=== PATIENT | female | born 1955 | race Two or more races ===

== ENCOUNTER 2018-11-10 12:59 | Outpatient (CLI) | payer OTHER ==
[~2018-11-10 12:59] MED LIST: CATAFLAN PO; KETO10TA2 PO; TYLENOL325 MG PO; ZANTAC150 MG PO
== END 2018-11-10 13:00 | disposition home or self-care (01) ==
LOC: SONOGRAMA 12:59 → MAMO-SONO 13:15
DX: M25.511 Pain in right shoulder (principal); M25.512 Pain in left shoulder

== ENCOUNTER 2019-01-06 08:13 | Outpatient (CLI) | payer OTHER | END 2019-01-06 08:16 | disposition home or self-care (01) | LOC: TOM 08:13 | DX: R10.9 Unspecified abdominal pain (principal) ==

== ENCOUNTER → 2021-04-12 | Outpatient (CLI) | payer OTHER | END | disposition home or self-care (01) | LOC: MAMO-SONO 06:28 | PROVIDERS: ATTEND Internal Medicine Cardiovascular Disease | DX: N64.59 Other signs and symptoms in breast (principal); Z12.31 Encounter for screening mammogram for malignant neoplasm of breast ==

== ENCOUNTER → 2021-05-02 08:08 | Outpatient (CLI) | payer OTHER | END | disposition home or self-care (01) | LOC: RAD 08:08 | PROVIDERS: ATTEND Radiology Diagnostic Radiology | DX: M51.34 Other intervertebral disc degeneration, thoracic region (principal); M43.05 Spondylolysis, thoracolumbar region ==

== ENCOUNTER → 2021-05-27 09:33 | Outpatient (CLI) | payer OTHER | END | disposition home or self-care (01) | LOC: SONOGRAMA 09:33 | PROVIDERS: ATTEND Radiology Diagnostic Radiology | DX: R10.84 Generalized abdominal pain (principal) ==

== ENCOUNTER 2021-07-16 10:56 | Emergency (ER) | payer OTHER ==
[~2021-07-16] VITALS: Ht 165.1 cm; Wt 66.7 kg
[2021-07-16] MEDS ORDERED: ORPHENADRINE C100 MG PO (14:21)
[2021-07-16] MEDS ORDERED: DICLOFENAC POTA50 MG PO (14:21)
== END 2021-07-16 14:38 | disposition home or self-care (01) ==
LOC: ER 10:56
DX: S52.591A Other fractures of lower end of right radius, initial encounter for closed fracture (principal); S40.211A Abrasion of right shoulder, initial encounter; W17.89XA Other fall from one level to another, initial encounter; Y93.89 Activity, other specified; Y92.488 Other paved roadways as the place of occurrence of the external cause; Y99.8 Other external cause status

== ENCOUNTER 2021-07-23 06:10 | Day surgery (SDC) | payer OTHER ==
[~2021-07-23 06:10] MED LIST changes: +DICLOFENAC POTA50 MG PO; +ORPHENADRINE C100 MG PO
== END 2021-07-23 13:55 | disposition home or self-care (01) ==
LOC: CIR.AMB 06:10
PROVIDERS: ATTEND Orthopaedic Surgery
DX: S52.571A Other intraarticular fracture of lower end of right radius, initial encounter for closed fracture (principal); M24.521 Contracture, right elbow; Z20.822 Contact with and (suspected) exposure to COVID-19
CPT/HCPCS: 25609; 25118; C1776

== ENCOUNTER 2021-08-21 09:48 | Outpatient (CLI) | payer OTHER | END 2021-08-21 10:01 | disposition home or self-care (01) | LOC: RAD 09:48 | PROVIDERS: ATTEND Orthopaedic Surgery | DX: S52.571D Other intraarticular fracture of lower end of right radius, subsequent encounter for closed fracture with routine healing (principal) ==

== ENCOUNTER 2021-11-06 06:18 | Outpatient (CLI) | payer OTHER | END 2021-11-06 10:37 | disposition home or self-care (01) | LOC: RAD 06:18 | PROVIDERS: ATTEND Orthopaedic Surgery | DX: S52.571D Other intraarticular fracture of lower end of right radius, subsequent encounter for closed fracture with routine healing (principal) ==

== ENCOUNTER 2022-05-01 09:37 | Outpatient (CLI) | payer OTHER | END 2022-05-01 16:06 | disposition home or self-care (01) | LOC: MAMO-SONO 09:37 | PROVIDERS: ATTEND Internal Medicine Cardiovascular Disease | DX: Z12.31 Encounter for screening mammogram for malignant neoplasm of breast (principal); M12.9 Arthropathy, unspecified; M46.48 Discitis, unspecified, sacral and sacrococcygeal region; N63.11 Unspecified lump in the right breast, upper outer quadrant ==

== ENCOUNTER → 2023-02-13 | Outpatient (CLI) | payer OTHER | END | disposition home or self-care (01) | LOC: TOM 14:14 | PROVIDERS: ATTEND Internal Medicine Cardiovascular Disease | DX: J44.9 Chronic obstructive pulmonary disease, unspecified (principal) ==

== ENCOUNTER 2023-04-10 11:47 | Outpatient (CLI) | payer OTHER | END 2023-04-10 15:35 | disposition home or self-care (01) | LOC: SONOGRAMA 11:47 | PROVIDERS: ATTEND Internal Medicine Cardiovascular Disease | DX: E04.8 Other specified nontoxic goiter (principal) ==

== ENCOUNTER → 2023-06-05 | Outpatient (CLI) | payer OTHER | END | disposition home or self-care (01) | LOC: MAMO-SONO 06:37 | PROVIDERS: ATTEND Internal Medicine Cardiovascular Disease | DX: N60.12 Diffuse cystic mastopathy of left breast (principal); Z12.31 Encounter for screening mammogram for malignant neoplasm of breast ==

== ENCOUNTER 2023-12-02 12:55 | Outpatient (CLI) | payer OTHER | END 2023-12-02 12:56 | disposition home or self-care (01) | LOC: NUCLEAR 12:55 | PROVIDERS: ATTEND Specialist | DX: M81.0 Age-related osteoporosis without current pathological fracture (principal) ==

== ENCOUNTER 2024-03-02 10:54 | Outpatient (CLI) | payer OTHER ==
[~2024-03-02 10:54] MED LIST changes: +ADVIL DUAL ACT1 EACH PO; +XANAX0.25 MG PO; +ZANTAC25 MG/1 ML
== END 2024-03-02 11:00 | disposition home or self-care (01) ==
LOC: RAD 10:54
PROVIDERS: ATTEND Orthopaedic Surgery
DX: S82.64XA Nondisplaced fracture of lateral malleolus of right fibula, initial encounter for closed fracture (principal)

== ENCOUNTER 2024-09-13 11:14 | Emergency (ER) | payer OTHER ==
[~2024-09-13] VITALS: Ht 165.1 cm; Wt 63.5 kg
[2024-09-13] MEDS ORDERED: KETOROLAC TROMETHAMINE 30 MG VIAL IM ONE (16:15)
[2024-09-13] MEDS ORDERED: NEOMYCIN/POLYMYXIN B/HYDROCORT 20 DR/ML BOTTLE OT ONE (16:15)
[2024-09-13] MEDS ORDERED: KETOROLAC TROMETHAMINE 30 MG VIAL ONE (16:22)
[2024-09-13] MEDS ORDERED: NEO-POLYMYXIN-H10 M1 OTIC (16:33)
== END 2024-09-13 16:50 | disposition home or self-care (01) ==
LOC: ER 11:16
DX: H92.01 Otalgia, right ear (principal)
CPT/HCPCS: 96372; 99282; J1885

== ENCOUNTER → 2024-10-21 | Outpatient (CLI) | payer OTHER ==
[~2024-10-21] MED LIST changes: +NEO-POLYMYXIN-H10 M1 OTIC
== END | disposition home or self-care (01) ==
LOC: MAMO-SONO 08:39
PROVIDERS: ATTEND Internal Medicine Cardiovascular Disease
DX: N60.11 Diffuse cystic mastopathy of right breast (principal); N60.12 Diffuse cystic mastopathy of left breast; Z12.31 Encounter for screening mammogram for malignant neoplasm of breast

== ENCOUNTER 2024-11-07 14:16 | Outpatient (CLI) | payer OTHER | END 2024-11-07 14:30 | disposition home or self-care (01) | LOC: RAD 14:16 | PROVIDERS: ATTEND Internal Medicine Cardiovascular Disease | DX: M19.90 Unspecified osteoarthritis, unspecified site (principal) ==

== ENCOUNTER 2025-03-28 08:20 | Outpatient (CLI) | payer OTHER | END 2025-03-28 08:26 | disposition home or self-care (01) | LOC: RAD 08:20 | PROVIDERS: ATTEND Internal Medicine Cardiovascular Disease | DX: R13.10 Dysphagia, unspecified (principal) ==